=== PATIENT | male | born 1990 | race Caucasian/White ===

== ENCOUNTER 2019-05-05 06:58 | Emergency (ER) | payer OTHER, SELFPAY ==
[2019-05-05 07:09] VITALS: BP 149/94; PULSE 89; RESP 20; TEMP 37.2; O2SAT 98; BMI 25.7
[2019-05-05 08:08] LABS: Influenza A - CEPHEID Flu A NEGATIVE (NEGATIVE); Influenza B - CEPHEID Flu B POSITIVE (NEGATIVE)
--- NOTE | 2019-05-05 08:25 | ED_ITS ---
HPI - URI/Sore Throat General Chief Complaint: Upper Respiratory Symptoms Stated Complaint: flu like symptoms/fever/painful cough Time Seen by Provider: 05/05/19 07:09 Source: patient Mode of arrival: Ambulatory Limitations: no limitations History of Present Illness HPI Narrative: Patient is a 29-year-old male who presents with body aches, fever and nausea ongoing for the last 5 days. He says that actually 3 days ago was the worst. He is is able to drink fluids he has a cough but denies feeling short of breath. He overall just feels extremely tired. He did get his influenza vaccine. Complaint: fever and cough Onset (ago): day(s) (5) Related Data Home Medications Medication Instructions Recorded Confirmed No Known Home Medications 05/05/19 05/05/19 Allergies Allergy/AdvReac Type Severity Reaction Status Date / Time No Known Drug Allergies Allergy Verified 05/05/19 07:13 Review of Systems Review of Systems ROS Unobtainable: All systems reviewed & are unremarkable except as noted in HPI and below Constitutional Constitutional: Reports body ache(s), Reports chills, Reports fatigue, Reports fever(s) and Reports poor appetite Eyes Eyes: Denies change in vision, Denies eye discharge, Denies irritation and Denies loss of vision ENT Ears, Nose, Mouth, and Throat: Denies change in voice, Denies neck pain and Denies sore throat Cardiovascular Cardiovascular: Denies chest pain, Denies irregular heart rhythm, Denies lightheadedness, Denies palpitations, Denies dyspnea, Denies dyspnea on exertion and Denies orthopnea Respiratory Respiratory: Denies cough, Reports pain with cough, Denies dyspnea, Denies dyspnea on exertion and Denies wheezing Gastrointestinal Gastrointestinal: Denies abdominal pain, Reports nausea and Denies vomiting Musculoskeletal Musculoskeletal: Denies neck pain Integumentary/Breasts Skin/Breast: Denies pruritus, Denies erythema, Denies rash and Denies wounds Neurologic Neurologic: Denies loss of vision Endocrine Endocrine: Reports fatigue and Denies palpitations Allergic/Immunologic Allergic/Immunologic: Denies wheezing Patient History Medical History Patient denies medical problems (Acute) Social History Smoking Status: Current every day smoker Smoking Status: Current every day smoker tobacco type: cigarettes alcohol intake frequency: a few times a week Alcohol type: beer Substance Use Type: does not use Exam Initial Vital Signs Initial Vital Signs: Vital Signs Temperature 98.9 F 05/05/19 07:09 Pulse Rate 89 05/05/19 07:09 Respiratory Rate 20 05/05/19 07:09 Blood Pressure 149/94 H 05/05/19 07:09 Pulse Oximetry 98 05/05/19 07:09 GENERAL: Well-appearing, well-nourished and in no acute distress. HEENT: Head atraumatic,EOMI, pupils reactive, face symmetric, moist mucous membranes CARDIOVASCULAR: Regular rate and rhythm without murmurs, rubs or gallops. RESPIRATORY: Breath sounds equal bilaterally, no wheezes rales or rhonchi. ABDOMEN: Soft, nontender. Normoactive bowel sounds all 4 quadrants. No guarding or rebound. EXTREMITIES: Normal range of motion, no clubbing or edema. Neurovascularly intact NEUROLOGICAL: Alert and oriented x4.Normal gait and speech. Cranial nerves II through XII grossly intact. SKIN: Warm, dry, no laceration, no petechiae, no rashes or lesions. Course Orders Ordered: ED Orders 05/05/19 07:11 Influenza A & B (PCR) Stat Vital Signs Vital signs: Vital Signs - 8 hr 05/05/19 07:09 Temperature 98.9 F Pulse Rate 89 Respiratory Rate 20 Blood Pressure 149/94 H Pulse Oximetry [address] [facility] - URI/Sore Throat Lab Data Attestation: I reviewed the patient's lab results. Labs: Lab Results 05/05/19 Range/Units 07:11 Influenza A (RT-PCR) Flu a negative (NEGATIVE) Influenza B (RT-PCR) Flu b positive H (NEGATIVE) [facility] Narrative Medical decision making narrative: Patient is influenza B positive he did get his influenza seen. Is currently 5 days into the course is starting to feel little bit better. at this time no indication for Tamiflu Discharge Plan Departure Patient Disposition: Home Clinical Impression: Influenza B Discharge Date/Time: 05/05/19 08:47 Instructions: DI for Influenza -- Adult Activity Restrictions/Additional Instructions: *You have been diagnosed with influenza B *What to do: At this time rest hydrate fever control no indication for antibiotics or other medications *Continue to take medications as directed Tylenol 650 mg every 4-6 hours if needed for fever do not exceed more than 4000 mg in 24 hours *Follow up with your primary care provider in 2-3 days *Return to ER if you should have inability to tolerate fluids, increasing shortness of breath, fever not controlled or any new, worsening or concerning symptoms Prescriptions: No Action No Known Home Medications RF: 0 Referrals: Junior Vega PA-C [Primary Care Provider] - Stand Alone Forms: Work Release Note, Work/School Release
== END 2019-05-05 08:47 | disposition home or self-care (01) ==
PROVIDERS: Emergency Provider Emergency Medicine; PCP Physician Assistant
DX: J10.1 Influenza due to other identified influenza virus with other respiratory manifestations (principal); F17.200 Nicotine dependence, unspecified, uncomplicated
CPT/HCPCS: 87502; 99281